=== PATIENT | female | born 1990 | race African-American/Black ===

== ENCOUNTER 2023-05-28 21:23 | Emergency (ER) | payer SELFPAY ==
[2023-05-28 21:29] VITALS: BP 119/79; PULSE 97; RESP 18; TEMP 98.4; BMI 30.4
[2023-05-28] MEDS ORDERED: SODIUM CHLORIDE 1,000 ML IV STA (22:58)
[2023-05-28] MEDS ORDERED: ACETAMINOPHEN 1000 MG/100 ML BAG IVPB ONE (22:59)
[2023-05-28] MEDS ORDERED: ACETAMINOPHEN INJECTION 100 ML IVPB ONE (23:20)
[2023-05-28 23:26] LABS: BASO % 0.3 % (0-2.0); EOS % 2.9 % (0-4.5); HEMATOCRIT 44.2 % (32.4-45.2); HEMOGLOBIN 14.8 GM/dL (10.7-15.3); LYMPH % 21.2 % (8-40); MCH 27.2 pg (25.7-33.7); MCHC 33.6 g/dl (32.0-36.0); MEAN CELL VOLUME 81.1 fl (80-96); MEAN PLT VOLUME 9.2 fl (7.5-11.1); MONO % 10.9 % (3.8-10.2); NEUT % 64.7 % (42.8-82.8); PLATELET COUNT 290 10^3/uL (134-434); RBC 5.45 M/mm3 (3.60-5.2); RDW 13.7 % (11.6-15.6); WHITE BLOOD COUNT 9.8 K/mm3 (4.0-10.0)
[2023-05-29] MEDS ORDERED: DEXAMETHASONE SOD PHOSPHATE 10 MG/1 ML VIAL IVPUSH ONE (00:06)
[2023-05-29] MEDS ORDERED: hydrOXYzine PAMOATE 25 MG CAPSULE (FP) PO PRN (00:12)
[2023-05-29] MEDS ORDERED: DEXAMETHASONE SOD PHOSPHATE 10 MG/1 ML VIAL ONE (00:13)
[2023-05-29] MEDS ORDERED: prednisoLONE SODIUM PHOSPHATE 15 MG/5 ML ORAL SOLN BOTTLE PO ONE (00:13)
[2023-05-29 00:40] LABS: POTASSIUM 4.6 mmol/L (3.5-5.1)
[2023-05-29 00:42] LABS: CALCIUM 9.2 mg/dL (8.5-10.1)
[2023-05-29 00:43] LABS: ALBUMIN 3.9 g/dl (3.4-5.0); BLOOD UREA NITROGEN 9.8 mg/dL (7-18)
[2023-05-29 00:46] LABS: CREATININE 0.7 mg/dL (0.55-1.3)
[2023-05-29 00:48] LABS: BILIRUBIN,TOTAL 0.4 mg/dL (0.2-1); TOT PROT 7.9 g/dl (6.4-8.2)
== END 2023-05-29 00:57 | disposition home or self-care (01) ==
LOC: JERFT 21:23
PROC: 3E033NZ Introduction of Analgesics, Hypnotics, Sedatives into Peripheral Vein, Percutaneous Approach (ICD-10-PCS; principal; 2023-05-28)
PROC: 3E0337Z Introduction of Electrolytic and Water Balance Substance into Peripheral Vein, Percutaneous Approach (ICD-10-PCS; 2023-05-28)
PROC: 3E033GC Introduction of Other Therapeutic Substance into Peripheral Vein, Percutaneous Approach (ICD-10-PCS; 2023-05-29)
DX: T78.40XA Allergy, unspecified, initial encounter (principal); R21 Rash and other nonspecific skin eruption; L29.9 Pruritus, unspecified; M79.89 Other specified soft tissue disorders
CPT/HCPCS: 36415; 80053; 85025; 99284-25; J1100

== ENCOUNTER 2023-10-15 11:44 | Emergency (ER) | payer SELFPAY ==
[2023-10-15 11:51] VITALS: BP 104/74; PULSE 88; RESP 20; TEMP 97.9; BMI 30.5
[2023-10-15] MEDS ORDERED: IBUPROFEN 400 MG TABLET (FP) PO ONE ×2 (12:40→12:44)
== END 2023-10-15 13:47 | disposition home or self-care (01) ==
LOC: JERFT 11:44
DX: M25.571 Pain in right ankle and joints of right foot (principal); M21.41 Flat foot [pes planus] (acquired), right foot; M19.071 Primary osteoarthritis, right ankle and foot; W18.39XA Other fall on same level, initial encounter; Y92.002 Bathroom of unspecified non-institutional (private) residence as the place of occurrence of the external cause
CPT/HCPCS: 73610-TC-RT-FY; 73630-TC-RT-FY; 99283-25

== ENCOUNTER 2024-05-25 19:51 | Emergency (ER) | payer OTHER ==
[2024-05-25 19:59] VITALS: BP 114/81; PULSE 106; RESP 17; TEMP 100.2; BMI 29.2
[2024-05-25] MEDS ORDERED: ACETAMINOPHEN 500 MG TABLET (FP) ONE (20:43)
[2024-05-25] MEDS: ACETAMINOPHEN 500 MG TABLET (FP) PO ONE (20:45)
[2024-05-25] MEDS ORDERED: ONDANSETRON *ODT* 4 MG TABLET ONE (20:54)
[2024-05-25] MEDS: ONDANSETRON *ODT* 4 MG TABLET SL ONE (20:56)
[2024-05-25] MEDS: IBUPROFEN 600 MG TABLET (FP) PO ONE (21:25)
[2024-05-25] MEDS ORDERED: IBUPROFEN 600 MG TABLET (FP) PO ONE (21:25)
[2024-05-25] MEDS ORDERED: FAMOTIDINE 20 MG TABLET ONE (22:05)
== END 2024-05-25 22:05 | disposition home or self-care (01) ==
LOC: JERFT 19:51
DX: U07.1 COVID-19 (principal); R50.9 Fever, unspecified; M79.10 Myalgia, unspecified site; R11.10 Vomiting, unspecified
CPT/HCPCS: 0241U-QW; 99283-25; Q0162